=== PATIENT | male | born 1970 | race Caucasian/White ===

== ENCOUNTER 2023-11-23 14:54 | Emergency (ER) | payer OTHER, SELFPAY ==
--- NOTE | ~2023-11-23 | XR_ITS ---
EXAMINATION: XR chest 1V portable INDICATION: Cough and sore throat TECHNIQUE: Portable AP chest at 1557 hours COMPARISON: None available FINDINGS: A subtle airspace opacity is present in the right midlung zone. No pleural effusion or pneu mothorax. The cardiomediastinal silhouette is normal. IMPRESSION: 1. Subtle airspace opacity of the right midlung zone, likely infectious or inflammatory. Consider fol lowup radiographs or chest CT in six weeks if symptoms persist after appropriate therapy or if the pa tient is at high risk for malignancy. Reviewed, dictated and finalized at location F. IMPRESSION: 1. Subtle airspace opacity of the right midlung zone, likely infectious or infl ammatory. Consider followup radiographs or chest CT in six weeks if symptoms pe rsist after appropriate therapy or if the patient is at high risk for malignanc y.
[2023-11-23 14:55] VITALS: BP 165/66; PULSE 84; RESP 18; TEMP 36.4; O2SAT 97
--- NOTE | 2023-11-23 15:25 | ED.URI ---
HPI - URI/Sore Throat General Chief Complaint: Upper Respiratory Infection <Dwaine Diego PA-C - Last Filed: 11/23/23 19:16> Stated Complaint: cough/sore throat <Dwaine Diego PA-C - Last Filed: 11/23/23 19:16> Time Seen by Provider: 11/23/23 15:24 <Dwaine Diego PA-C - Last Filed: 11/23/23 19:16> Focused HPI: This is a 53 yo M who presents to the ED with chief complaint URI symptoms beginning last night. Patient reports sinus congestion, runny nose, postnasal drainage. Reports mild productive cough. Denies chest pain or shortness of breath. States he has history of COPD but has not had his medications since being [facility]. He does not use oxygen. He is almost out of albuterol and has not been taking his long-acting inhaled steroids. Patient reports that he slept with the window open a couple of nights ago and has been feeling under the weather ever since. Denies fevers, chills, abdominal pain, nausea, vomiting. GENERAL: Well-appearing, well-nourished, and in no acute distress. HEAD: Normocephalic, atraumatic. CHEST: Clear to auscultation. ?No respiratory distress. HEART: Regular rate and rhythm.? NEURO: ?Alert and oriented x3. Patient screened in triage and initial orders placed.? ?Additional care and disposition to be based upon?diagnostic testing and treatment. <Dwaine Diego PA-C - Last Filed: 11/23/23 19:16> History of Present Illness HPI Narrative: Pt presents with nasal congestion and cough since last night no fever. Pt has history of COPD but not requiring oxygen. <Bety Bunch III, DO - Last Filed: 11/23/23 18:50> Related Data Allergies/Adverse Reactions: Allergies Allergy/AdvReac Type Severity Reaction Status Date / Time No Known Allergies Allergy Verified 11/23/23 16:26 <TULIO Cuello Last Filed: 11/23/23 19:16> Review of Systems Review of Systems: All systems reviewed & are unremarkable except as noted in HPI and below <Bety Chandler Bunch III, DO - Last Filed: 11/23/23 18:50> Exam Const: General: cooperative, healthy appearing and no acute distress <Bety Chandler Bunch III, DO - Last Filed: 11/23/23 18:50> HENMT: Head: normal to inspection <Bety Chandler Bunch III, DO - Last Filed: 11/23/23 18:50> Face/Nose/Sinus: Nasal discharge present <Bety Chandler Bunch III, DO - Last Filed: 11/23/23 18:50> Mouth: Yes Normal oral and palatal mucosa present <Bety Chandler Bunch III, DO - Last Filed: 11/23/23 18:50> Throat: posterior oropharynx normal <Bety Chandler Bunch III, DO - Last Filed: 11/23/23 18:50> Neck: Neck: normal visual inspection, full ROM and no lymphadenopathy <Bety Chandler Bunch III, DO - Last Filed: 11/23/23 18:50> Chest: Chest palpation & inspection: normal inspection of the chest <Bety Chandler Bunch III, DO - Last Filed: 11/23/23 18:50> Resp: Effort & Inspection: normal respiratory effort <Bety Chandler Bunch III, DO - Last Filed: 11/23/23 18:50> Auscultation: clear to auscultation bilaterally <Bety Chandler Bunch III, DO - Last Filed: 11/23/23 18:50> Cardio: Rate: regular rate <Bety Chandler Bunch III, DO - Last Filed: 11/23/23 18:50> Rhythm: regular rhythm <Bety Chandler Bunch III, DO - Last Filed: 11/23/23 18:50> GI: Inspection: normal to inspection <Bety Chandler Bunch III, DO - Last Filed: 11/23/23 18:50> GI Palp: Yes abdominal tenderness <Bety Chandler Bunch III, DO - Last Filed: 11/23/23 18:50> Auscultation: normal bowel sounds <Bety Chandler Bunch III, DO - Last Filed: 11/23/23 18:50> Skin: General skin exam: normal color and no rashes or lesions noted <Bety Chandler Bunch III, DO - Last Filed: 11/23/23 18:50> Neuro: General: patient oriented x3, moves all extremities, no meningeal signs, no focal motor deficits and CN's II-XI intact bilaterally <Bety Arteaga Bunch III, DO - Last Filed: 11/23/23 18:50> Extrem: General: normal to inspection, full ROM and no clubbing, cyanosis or edema <Bety Chandler Bunch III,
[2023-11-23 16:58] LABS: Influenza A QL RT-PCR Negative (Negative); Influenza B QL RT-PCR Negative (Negative); RSV RNA, RT-PCR Negative (Negative); SARS-CoV-2 RNA PCR Negative (Negative)
== END 2023-11-23 17:20 | disposition home or self-care (01) ==
PROVIDERS: Physician Assistant; Emergency Provider Emergency Medicine
DX: J40 Bronchitis, not specified as acute or chronic (principal); Z20.822 Contact with and (suspected) exposure to COVID-19
CPT/HCPCS: 71045; 87637; 99283

== ENCOUNTER 2024-01-30 14:55 | Emergency (ER) | payer OTHER, SELFPAY ==
[2024-01-30] VITALS (17 sets, daily range): BP systolic 165–207; BP diastolic 87–105; PULSE 78–115; RESP 16–20; TEMP 36.4; O2SAT 94–99
--- NOTE | ~2024-01-30 | XR_ITS ---
EXAMINATION: XR chest 1V portable DATE: 01/30/2024 15:40 INDICATION: Shoulder pain. Hypertension. Headache. TECHNIQUE: A single frontal view of the chest was obtained. COMPARISON: Chest single view 11/23/2023 FINDINGS: There is mild atelectasis in left lower lung zone. No pleural effusion or pneumothorax. The heart size is normal. IMPRESSION: 1. Mild atelectasis in left lower lung zone. Reviewed, dictated and finalized at location E.
--- NOTE | ~2024-01-30 | CT_ITS ---
EXAMINATION: CT brain wo con DATE: 01/30/2024 15:58 INDICATION: Headache. TECHNIQUE: Computed tomography (CT) of the head was performed without intravenous contrast. The mA wa s adjusted according to patient size. Iterative reconstruction technique was employed. The dose-lengt h product was 681.00 mGy-cm. COMPARISON: None FINDINGS: There is no intracranial hemorrhage, acute infarction, or abnormal intracranial mass lesion . The ventricles are normal in size. The orbits are normal. There is mild mucosal thickening in the p aranasal sinuses. The mastoid air cells are normal. IMPRESSION: 1. Normal brain. Reviewed, dictated and finalized at location E. IMPRESSION: 1. Normal brain.
--- NOTE | 2024-01-30 15:19 | ECG_ITS ---
[facility] [address] Test Date: 2024-01-30 Pat Name: Osmar Whitt Department: Room: Gender: M Rn Telemetry: : 1970 Requested By: Ishmael Jackson Order Number: [id number] Yazmin MD: Bryan Broderick M.D. Measurements Intervals [place] Rate: 80 P: 53 NV: 159 QRS: 49 QRSD: 78 T: 62 QT: 359 QTc: 415 Interpretive Statements SINUS RHYTHM POSSIBLE LEFT ATRIAL ENLARGEMENT [-0.1mV P WAVE IN V1/V2] SEPTAL MYOCARDIAL INFARCTION , OF INDETERMINATE AGE [40+ ms Q WAVE IN V1/V2] No previous ECG available for comparison Electronically Signed On 01-31-2024 12:04:32 CDT by Bryan Broderick M.D.
--- NOTE | 2024-01-30 15:23 | ED.RECABL ---
HPI - Recheck/Abnormal Lab/Rx General Chief Complaint: Recheck/Abnormal Lab/Rx Stated Complaint: htn Time Seen by Provider: 01/30/24 15:13 Source: patient Mode of arrival: ambulatory Limitations: no limitations History of Present Illness HPI narrative: Osmar is a 53-year-old male patient presenting to the ER today with complaints of headache, hypertension, left shoulder pain, dizziness that started sometime this morning when he awoke. 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 Rates his pain currently 10 at 10. Related Data Allergies Allergy/AdvReac Type Severity Reaction Status Date / Time No Known Allergies Allergy Verified 11/23/23 16:26 Review of Systems Review of Systems: Pertinent positives per HPI. Patient denies any fever, chills, rash, visual changes, dizziness, cough, runny nose, sore throat, shortness of breath, chest pain, palpitations, nausea, vomiting, diarrhea, constipation, abdominal pain, or any urinary issues. PMFSH Comments At the time of my signature, I reviewed and agree with the nursing past medical, surgical, social, and family history. There is no relevant family history pertinent to the patient complaint. Course Course Emergency Course: Portions of this record may have been created with voice recognition software. Vital Signs Vital signs: Vital Signs Temperature 36.4 C L 01/30/24 15:04 Pulse Rate 85 01/30/24 15:04 Respiratory Rate 16 01/30/24 15:04 Blood Pressure 197/87 H 01/30/24 15:04 Pulse Oximetry 98 01/30/24 15:04 Temperature 36.4 C L 01/30/24 15:04 Pulse Rate 82 01/30/24 16:00 Respiratory Rate 16 01/30/24 15:04 Blood Pressure 192/94 H 01/30/24 15:32 Pulse Oximetry 99 01/30/24 16:00 Vital signs reviewed MDM - Recheck/Abnormal Lab/Rx MDM Narrative Medical decision making narrative: At the time of visit patient is anxious on the stretcher. Patient appears to be nontoxic. EKG: EKG shows sinus rhythm with a possible left atrial enlargement with heart rate of 80 beats per minute. No ST elevation, depression, or T-wave inversion likely old septal myocardial infarction Labs: CBC shows white blood cell count of 10, H and H of 14.3 and 42.8, platelet count is 311, anti coagulation studies within normal limits, chemistry shows sodium 137, potassium at 3.7, chloride 107, carbon dioxide 24, BUN of 11, creatinine 0.7, GFR greater than 60, glucose is 203, liver function tests within normal limits, initial troponin was negative Diagnostics: CT brain negative for any acute intracranial process, chest x-ray shows mild atelectasis in the left lower lobe Medications given: Lopressor 5 mg IV push Plan: Labs are unremarkable and CT of the head is negative for any acute intracranial process. Chest x-rays negative for any pneumonia but does shows some mild atelectasis in left lower lobe. Patient's blood pressure systolic is over 200. Lopressor 5 mg IV push was given in this brought his pressure down to 165/91. Patient has not been taking his blood pressure medicines regularly as he has been working extra shifts. Offer to give anxiety medicine while in the ER and patient declined and states that he just wants to go home. All labs and diagnostic test were reviewed with the patient and he is not wanting to stay here any longer. Will discharge at this time as a feel he is appropriate for outpatient management with his primary care provider. Supportive measures were discussed with the patient and they voiced understanding discharge instructions and agrees to treatment plan. Return precautions reviewed Differential Diagnosis Differential diagnosis: Likely other (Hypertension, headache, chest pain, shortness of breath, non STEMI, CVA, brain mass) Lab Data 01/30/24 15:35 01/30/24 15:35 Labs: Lab Results 01/30/24 01/30/24 Range/Units 15:26 15:35 WBC 10.0 (4.5-10.0) K/mm3 RBC 4.64 (4.6-6.20) M/mm3 Hgb 14.3 (
[2024-01-30 15:38] LABS: Glucose Point of Care 218 mg/dl (65-105)
[2024-01-30 15:41] LABS: Basophils Absolute Auto 0.1 K/mm3 (0.0-0.1); Basophils Percent Auto 0.5 % (0.2-1.2); Eosinophils Absolute Auto 0.9 K/mm3 (0-0.3); Eosinophils Percent Auto 8.5 % (0-4.4); Hematocrit 42.8 % (42.0-52.0); Hemoglobin 14.3 g/dL (14.0-18.0); Immature Granulocyte Absolute 0.03 K/mm3 (0.00-0.031); Immature Granulocyte Percent A 0.3 % (0-0.5); Lymphocytes Percent Auto 30.1 % (18.3-44.2); Mean Corpuscular HGB Conc 33.4 g/dl (32-36); Mean Corpuscular Hemoglobin 30.8 pg (26-34); Mean Corpuscular Volume 92.2 fl (80-100); Mean Platelet Volume 8.9 fl (7.4-10.4); Monocytes Absolute Auto 0.7 K/mm3 (0.1-0.6); Monocytes Percent Auto 6.5 % (2.6-8.5); Neutrophils Absolute Auto 5.4 K/mm3 (1.3-6.7); Neutrophils Percent Auto 54.1 % (45.5-73.1); Platelet Count Result 311 k/mm3 (150-375); Red Blood Count 4.64 M/mm3 (4.6-6.20); Red Cell Distribution Width 13.4 % (11.5-14.5)
[2024-01-30 15:53] LABS: Prothrombin Time 13.1 Seconds (11.1-14.7)
[2024-01-30 15:54] LABS: Partial Thromboplastin Time 25.2 Seconds (22.3-36.8)
[2024-01-30 15:56] LABS: Alanine Aminotransferase 21 U/L (6-50); Albumin Level 3.8 g/dL (3.5-5.1); Alkaline Phosphatase 103 U/L (38-126); Anion Gap 6 mmol/L (4-12); Aspartate Amino Transferase 24 U/L (17-59); Bilirubin,Total 0.3 mg/dL (0.2-1.3); Blood Urea Nitrogen 11 mg/dL (9-20); Calcium 8.5 mg/dL (8.4-10.2); Carbon Dioxide 24 mmol/L (22-30); Chloride 107 mmol/L (98-107); Estimated CRCL calculation 145 ml/min; Estimated Glomerular Filt Rate > 60; Glucose 203 mg/dL (65-110); Potassium 3.7 mmol/L (3.4-5.0); Sodium 137 mmol/L (137-145)
[2024-01-30 16:07] LABS: Troponin I < 0.012 ng/mL (0.000-0.034)
[2024-01-30] MEDS: METOPROLOL TARTRATE INJ 5 MG/5 ML VIAL IV PUSH (16:45)
[2024-01-30 16:58] LABS: Appearance Urine Clear (Clear); Bacteria Urine None Seen /hpf; Bilirubin Urine Negative (Negative); Blood Urine Negative (Negative); Color Urine Yellow (Yellow); Glucose Urine UA 1+ mg/dL (Negative); Ketones Urine Negative (Negative); Leukocyte Esterase Ur Negative LEU/UL (Negative); Nitrate Urine Negative (Negative); Non Pathogenic Casts 0-2; Protein Urine 1+ mg/dL (Negative); RBC Urine 0-2 /hpf (0-2); Specific Grav Ur 1.018 (1.001-1.035); Squamous Epithelial Cell Urine None Seen /hpf (Few); WBC Urine 0-5 /hpf (0-3)
[2024-01-30 17:02] LABS: Add Urine Microscopic? YES
== END 2024-01-30 17:29 | disposition home or self-care (01) ==
PROVIDERS: Emergency Provider Nurse Practitioner Family
DX: G44.1 Vascular headache, not elsewhere classified (principal); I10 Essential (primary) hypertension; Z86.73 Personal history of transient ischemic attack (TIA), and cerebral infarction without residual deficits
CPT/HCPCS: 36415; 70450; 71045; 80053; 81001; 82948; 84484; 85025; 85610; 85730; 93005; 96374; 99284

== ENCOUNTER 2024-08-12 13:03 | Emergency (ER) | payer OTHER, SELFPAY ==
--- OUTSIDE RECORDS SUMMARY | 2024-08-12 13:12 | XMS_ITS | Data Portability ---
Author Organization [place] - [facility] [employer], Main Office Address [address] [place] [address] Assessment No assessment recorded. Plan of Treatment Reminders Order Date Submit Date Provider Last Modified By Organization Details Last Modified Time Details Appointments New Patient 40 2024 01:30P HEATH Howard Not available Not available Not available Follow Up 30 2024 01:00P M MAYA Moon Not available Not available Not available Lab glycohemo globin, total, blood [address] (Lab), [address] [place], [address], 01/01/2024 09:17:43 lipid panel, serum 2023 024 [facility] (Lab), [address] [place], [address], 12/28/2023 21:10:27 CMP, serum or plasma 2023 024 [facility] (Lab), [address] [place], [address], 12/28/2023 21:10:27 TSH, serum or plasma 2023 024 [facility] (Lab), [address] [place], [address], 12/28/2023 21:10:27 CK (creatine kinase), total, serum [address] (Lab), [address] [place], [address], 01/01/2024 09:18:29 PSA, serum or plasma 2023 [facility] (Lab), [address] [place], [address], 12/28/2023 21:10:27 glycohemo globin, total, blood [email or web address] (Lab), [address] [place], [address], 08/10/2024 11:05:58 Referral psychiatr ist referral - PTSD . night terrors. Please call patient to schedule an appointme nt. Thank you 2023 [email or web address] Hailee Ha Pmhnp, [address] [facility] [address], [address], 08/09/2024 17:20:24 Procedures None recorded. Surgeries None recorded. Imaging None recorded. Medication Orders clopidogr el 75 mg tablet 2023 [facility] [employer] [facility] #97545, [address], [id number], 12/25/2023 11:16:46 aspirin 81 mg tablet,de layed release 2023 024 [facility] [employer] [facility] #91088, [address], [id number], 12/25/2023 11:17:34 prazosin 1 mg capsule 2023 024 [facility] [employer] [facility] #24411, [address], [id number], 12/25/2023 10:59:47 hydroxyzi ne HCl 10 mg tablet 2023 024 [facility] [employer] [facility] #36372, [address], [id number], 12/25/2023 11:05:21 albuterol sulfate HFA 90 mcg/actua tion aerosol inhaler 2023 024 [facility] #61747, [address], [place], [place], [id number], 12/25/2023 11:06:33 Symbicort 160 mcg-4.5 mcg/actua tion HFA aerosol inhaler 2023 [email or web address] [place] [address] Drug Store #30136, [address], [place], [place], [id number], 01/02/2024 20:54:30 Spiriva with [employer] r 18 mcg and inhalatio n capsules 2023 024 [facility] #36186, [address] [facility], [place], [place], [id number], 12/25/2023 11:07:51 losartan 100 mg tablet 2023 024 [facility] #86795, [address] [facility], [place], [place], [id number], 12/25/2023 10:54:51 bupropion HCl XL 150 mg 24 hr tablet, extended release 2023 0[email or web address]311[facility], [address], [place], [place], [id number], 08/02/2024 15:18:10 bupropion HCl XL 300 mg 24 hr tablet, extended release 2023 024 [facility] #23800, [address] [place] [address], [id number], 12/25/2023 11:02:16 prazosin 2 mg capsule 2023 024 [facility] #41505, [address] [place] [address], [id number], 08/02/2024 15:32:49 alcohol swabs 2023 [facility] #29808, [address] [place] [address], [id number], 08/02/2024 15:47:09 sildenafi l 100 mg tablet 2023 [facility] #23561, [address] [facility] [address] [place] [address], [id number], 08/02/2024 15:55:15 triamcino lone acetonide 0.1 % topical ointment 2023 [facility] [employer] [facility] #02222, [address] [facility] [address] [place] [address], [id number], 08/02/2024 15:38:58 hydroxyzi ne HCl 10 mg tablet 2023 [facility] #33908, [address] [facility] [address] [place] [address], [id number], 08/02/2024 15:41:52 bupropion HCl XL 300 mg 24 hr tablet, extended release 2023 [facility] [employer] [facility] #40493, [address], [id number], 08/02/2024 15:36:36 Patient TargetsNo targets recorded. Patient Instructions Encounter Date Encounter Id Patient Instructions Last Modified By Organization Details Last Modified Time 12/25/2023 [id number] return here free BP chec in 7 days,reviewed salty foods to avoid. no si/hi for years [email or web address] Not available 01/02/2024 21:17:45 Reason for Referral Psychiatrist Referral for Sl eep terror disorder PTSD . night terrors. Please call patient to schedule an appointment. Thank you Referring Physician: Hipolito Walker, Family Medicine, Encounter Date: 08/02/2024 Results Created Date Observation Date Name Description Value Unit Range Abnormal Flag Note LastModifiedBy Organization Detail LastModifiedTime Result Notes None recorded. Problems Name Problem SNOMED Code Status Onset Date Resolution Date Notes Provider Name and Address Organization Details Recorded Time Essential hypertensi on 76359501 Active 2023 MAYA Moon [address], [place], [address], [employer] 4 10:53:41 Sleep terror disorder 25247393 Active 2023 MAYA Moon [address], [place], [address], [employer] 4 10:55:29 Depressive disorder 35656073 Active 2023 MAYA Moon [address], [address], [place], [address], [employer] 4 10:58:48 Anxiety 38755352 Active 2023 MAYA Moon [address], [place], [address], [employer] 4 11:02:23 Chronic obstructiv e pulmonary disease 16197679 Active 2023 MAYA Moon [address], [place], [address], [employer] 4 11:03:35 Type 2 diabetes mellitus 98205483 Active 2023 MAYA Moon [address], [place], [address], [employer] 4 11:08:47 Hyperlipid emia 54322631 Active 2023 MAYA Moon [address], [place], [address], [employer] 4 11:09:30 Screening for malignant neoplasm of prostate Active 2023 MAYA Moon [address], [place], [address], [employer] 4 11:10:28 Cerebrovas cular accident 242031795 Active 2023, affecting left side . MAYA Moon [address], [address], [place], [address], [employer] 4 15:35:48 Posttrauma tic stress disorder 87812122 Active 2023 MAYA Moon [address], [place], [address], [employer] 15:28:34 Eczema 33746358 Active 2023 MAYA Moon [address], [place], [address], [employer] 4 15:37:45 Erectile dysfunctio n 329744273 Active 2023 MAYA Moon [address], [place], [address], [employer] 15:53:53 Notes:cva affecting left coby e [facility] 2022 Problem Notes None recorded. Medical Equipment None Reported. Allergies Allergen ID Allergen Name Allergen Category Reaction Reaction Severity Criticality Documentation Date Start Date Code Code System Note Provider Name and Address Organization Details Recorded Time 15748 Aleve medicatio n swelling Not available Not available 08/02/2024 15363 1 RxNorm Darlene Duvall RN null, [email or web address] [facility] [employer] 15:23:50 Medications Name Sig Start Date Stop Date Status Note LastModified by Organization Details LastModified Time azithromy adilson 250 mg tablet TAKE 2 TABLETS BY MOUTH ON DAY 1, AND THEN TAKE 1 TABLET BY MOUTH ONCE A DAY ON DAY 2 THROUGH DAY 5 12/24 completed Not Available Not Available Not Available prazosin 1 mg capsule Take 1 capsule every day by oral route at bedtime for 30 days, for for night terrors. 2023 active Not Available Not Available Not Avai lable clopidogr el 75 mg tablet TAKE 1 TABLET BY MOUTH EVERY DAY IN THE MORNING FOR CIRCULAT ION active Not Available Not Available No t Available aspirin 81 mg tablet,de layed release TAKE 1 TABLET BY MOUTH EVERY DAY IN THE MORNING FOR CIRCULAT ION active Not Available Not Available No t Available sildenafi l 100 mg tablet TAKE 1 TABLET BY MOUTH EVERY DAY FOR 10 DAYS NEEDED active Not Available Not Available No t Available triamcino lone acetonide 0.1 % topical ointment APPLY A THIN LAYER TO THE AFFECTED AREA(S) hands , grin BY TOPICAL ROUTE 2 TIMES PER DAY 2023 active Not Available Not Available Not Avai lable alcohol swabs Apply 1 pad every day by topical route for 30 days. 2023 active Not Available Not Available Not Avai lable albuterol sulfate HFA 90 mcg/actua tion aerosol inhaler INHALE 2 PUFFS BY MOUTH EVERY 8 HOURS NEEDED active Not Available Not Available No t Available hydroxyzi ne HCl 10 mg tablet take 1 or 2 tabs po up to 3 times daily 2023 active Not Available Not Available Not Avai lable losartan 100 mg tablet TAKE 1 TABLET BY MOUTH EVERY DAY IN THE MORNING FOR BLOOD PRESSURE active Not Available Not Available No t Available metformin ER 500 mg tablet,ex tended release 24 hr 1 tab po at dinner for 7 days. 2 tabs at dinner for 7 days . 3 tabs at dinner for 7 days . 4 tabs at dinner and maintain active Not Available Not Available No t Available prazosin 2 mg capsule TAKE 1 CAPSULE BY MOUTH EVERY DAY AT BEDTIME 2023 active Not Available Not Available Not Avai lable bupropion HCl XL 300 mg 24 hr tablet, extended release Take 1 tablet every day by oral route in the morning for 30 days. 2023 active Not Available Not Available Not Avai lable bupropion HCl XL 150 mg 24 hr tablet, extended release TAKE 1 TABLET BY MOUTH EVERY DAY IN THE MORNING FOR 7 DAYS 08/02 completed dose adjustme nt Not Available Not Available Not Available tiotropiu m bromide 18 mcg capsule with inhalatio n device INHALE THE CONTENTS OF 1 CAPSULE VIA INHALATI ON DEVICE EVERY DAY active Not Available Not Available No t Available Symbicort 160 mcg-4.5 mcg/actua tion HFA aerosol inhaler INHALE 2 PUFFS BY MOUTH TWICE DAILY active Not Available Not Available No t Available Vitals Date Recorded Body height Body mass index (BMI) Body weight Body temperature Respiratory rate Heart rate Oxygen saturation Oxygen saturation in Arterial blood by Pulse oximetry Systolic blood pressure Diastolic blood pressure Provider Name and Address Organization Details Last Updated DateTime 4 187.96 cm 34.4 kg/m2 543662. 76 g 98.4 [degF] 16 /min 82 /min 98 % 98 % 180 mm[Hg] 118 mm[Hg] Darlene Duvall RN [facility] [employer] [facility] 4 10:37:46 Date Recorded Body height Body mass index (BMI) Body weight Body temperature Heart rate Oxygen saturation Oxygen saturation in Arterial blood by Pulse oximetry Systolic blood pressure Diastolic blood pressure Provider Name and Address Organization Details Last Updated DateTime 4 187.96 cm 30.6 kg/m2 004512. 98 g 97.7 [degF] 90 /min 99 % 99 % 200 mm[Hg] 112 mm[Hg] Darlene Duvall RN [facility] [employer] [facility] 4 15:26:01 Social History Question Answer Notes LastModified by Organizat ion Details LastModified Time Tobacco Smoking Status Current Every Day Smoker Darlene Duvall RN [facility] [employer] [facility] 12/25/2023 10:34:11 Do You Have An Advance Directive? No Information not available 12/25/2023 What Is Your Level Of Alcohol Consumption? None Information not available 12/25/2023 Is Blood Transfusion Acceptable In An Emergency? Yes Information not available 12/25/2023 What Is Your Level Of Caffeine Consumption? Occasional Information not available 12/25/2023 What Is Your Code Status? Full Code Information not available 12/25/2023 In The 14 Days Before Symptom Onset, Have You Had Close Contact With A Laboratory-confi rmed COVID-19 While That Case Was Ill? No Information not available 12/25/2023 In The 14 Days Before Symptom Onset, Have You Had Close Contact With A Person Who Is Under Investigation For COVID-19 While That Person Was Ill? No Information not available 12/25/2023 Are You Currently Employed? Yes Information not available 12/25/2023 What Type Of Diet Are You Following? REGULAR Information not available 12/25/2023 What Is The Highest Grade Or Level Of School You Have Completed Or The Highest Degree You Have Received? [id number] Information not available 12/25/2023 Have There Been Any Changes To Your Family Or Social Situation? Yes Information not available 12/25/2023 Are There Any Guns Present In Your Home? No Information not available 12/25/2023 Where Do You Live? SingleLevelHouse Information not available 12/25/2023 Do You Have A Medical Power Of Global Director Air And Climate Change? No Information not available 12/25/2023 How Many Children Do You Have? 0 Information not available 12/25/2023 What Is Your Relationship Status? Single Information not available 12/25/2023 Do You Use Your Seat Belt Or Car Seat Routinely? Yes Information not available 12/25/2023 Do You Have Smoke And Carbon Monoxide Detectors In Your Home? Yes Information not available 12/25/2023 Are You Passively Exposed To Smoke? Yes Information not available 12/25/2023 Are There Any Smokers In Your House? Yes Information not available 12/25/2023 How Much Tobacco Do You Smoke? 1 PPD Information not available 12/25/2023 Do You Feel Stressed (tense, Restless, Nervous, Or Anxious, Or Unable To Sleep At Night)? [id number] Information not available 12/25/2023 Do You Use Any Illicit Or Recreational Drugs? No Information not available 12/25/2023 Have You Recently Traveled Abroad? No Information not available 12/25/2023 Are You Currently In School? No Information not available 12/25/2023 Do You Have Any Dietary Restrictions? No Information not available 12/25/2023 Sex: Unknown Functional Status Question Answer Note LastModified by Organizat ion Details LastModified Time What is your exercise level? Occasional Information not available 12/25/2023 Mental Status None recorded. Family History Nothing Reported. Medical History No medical history recorded. Past Encounters Encounter ID Performer Location Encounter Start Date Encounter Closed Date Diagnosis/Indication Diagnosis SNOMED-CT Code Diagnosis ICD10 Code [id number] MAYA Moon [facility] [address] [facility] [place] [address] 12/25/2023 10:16:08 12/25/2023 11:51:04 Essential hypertension 59088570 I10 Sleep terror disorder 89 749784 F51.4 Depressive disorder 3548 9007 F32.A Anxiety 02803008 F41.9 Chronic ob structive pulmonary disease 40969452 J44.9 Type 2 susy betes mellitus 49927316 E11.9 Hyperlipidemia 36555531 E78.5 Screening for malignant neoplasm of prostate 586338209 Z12.5 Cerebrovas cular accident 316568898 I63.9 [id number] MAYA Moon [facility] [address] [place] [address] 08/02/2024 15:02:12 08/02/2024 15:59:40 Sleep terror disorder 00812642 F51.4 Depressive disorder 3548 9007 F32.A Anxiety 42288245 F41.9 Eczema 72970709 L30.9 Type 2 susy betes mellitus 42945670 E11.9 Essential hypertension 57825145 I10 Erectile dysfunction 860 440350 F52.21 Cerebrovas cular accident 052355714 I63.9 Health Concerns Section Related Observation LastModified by Organization Detai ls LastModified Time None Recorded Concern Status LastModified by Organization Details LastModified Time None Recorded Advance Directives Directive N: Payers Encounter Date Sequence Insurance Name Policy Number Policy Agee Covered Member ID Agee Member ID Guarantor Name 12/25/2023 1 [facility] ON OR AFTER 02/28/21 (MEDICAID REPLACEMENT - HMO) Osmar Whitt [id number] Osmar Whitt 08/02/2024 1 [facility] ON OR AFTER 02/28/21 (MEDICAID REPLACEMENT - HMO) Osmar Whitt [id number] Osmar Wihtt Notes Date Note Type Note Provider Name and Address Organization Details Recorded Time 12/25/2023 text/html 10 years in [employer] 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 copd depressed ptsd. Juy 2021 tried to hang himelf MAYA Moon [address], [place], [address], [facility] [employer] [facility] [employer] [facility] 01/02/2024 21:17:57 08/02/2024 text/html still limping , could use a cane . his fall did not injure anything MAYA Moon [address], [place], [address], [employer] 08/04/2024 10:30:59
--- OUTSIDE RECORDS SUMMARY | 2024-08-12 13:12 | XMS_ITS | Continuity of Care Document ---
Author Organization [place] - [facility], S_[facility] Address [address] [place] [address] Assessment No assessment recorded. Plan of Treatment Reminders Order Date Submit Date Provider Last Modified By Organization Details Last Modified Time Details Appointments New Patient 40 2024 01:30P M Hailee Ha PMHNP Not available Not available Not available Follow Up 30 2024 01:00P M MAYA Moon Not available Not available Not available Lab glycohemo globin, total, blood [email or web address] ([address]), [address] [place], [address], 08/10/2024 11:05:58 Referral psychiatr ist referral - PTSD . night terrors. Please call patient to schedule an appointme nt. Thank you 2023 024 [email or web address] Hailee Ha Pmhnp, [address] [facility] [address] , [place], [address], 08/09/2024 17:20:24 Procedures None recorded. Surgeries None recorded. Imaging None recorded. Medication Orders prazosin 2 mg capsule 2023 [employer] #28863, [address], [id number], 08/02/2024 15:32:49 alcohol swabs 2023 024 [facility] #93455, [address], [id number], 08/02/2024 15:47:09 sildenafi l 100 mg tablet 2023 [facility] #16879, [address], [id number], 08/02/2024 15:55:15 triamcino lone acetonide 0.1 % topical ointment 2023 [facility] #95916, [address], [id number], 08/02/2024 15:38:58 hydroxyzi ne HCl 10 mg tablet 2023 [facility] #92116, [address], [id number], 08/02/2024 15:41:52 bupropion HCl XL 300 mg 24 hr tablet, extended release 2023 [facility] #93727, [address], [id number], 08/02/2024 15:36:36 Patient TargetsNo targets recorded. Patient InstructionsNo instructions recorded. Reason for Referral Psychiatrist Referral for Sl eep terror disorder PTSD . night terrors. Please call patient to schedule an appointment. Thank you Referring Physician: Hipolito Walker, Family Medicine, Encounter Date: 08/02/2024 Problems Name Problem SNOMED Code Status Onset Date Resolution Date Notes Provider Name and Address Organization Details Recorded Time Essential hypertensi on 85562469 Active 2023 MAYA Moon [address], [place], [address], [employer] 10:53:41 Sleep terror disorder 73195279 Active 2023 MAYA Moon [address], [place], [address], [employer] 4 10:55:29 Depressive disorder 56302374 Active 2023 MAYA Moon [address], [place], [address], [employer] [place] [facility] 4 10:58:48 Anxiety 79393300 Active 2023 MAYA Moon [address], [place], [address], [employer] [place] [facility] [employer] [facility] 4 11:02:23 Chronic obstructiv e pulmonary disease 53347977 Active 2023 MAYA Moon [address], [place], [address], [employer] 4 11:03:35 Type 2 diabetes mellitus 54275958 Active 2023 MAYA Moon [address], [place], [address], [employer] [facility] [employer] [facility] 11:08:47 Hyperlipid emia 04605529 Active 2023 MAYA Moon [address], [place], [address], [employer] [facility] [employer] [facility] 4 11:09:30 Screening for malignant neoplasm of prostate Active 2023 MAYA Moon [address], [place], [address], [employer] [facility] [employer] [facility] 4 11:10:28 Cerebrovas cular accident 270784314 Active 2023, affecting left side . MAYA Moon [address], [place], [address], [employer] [facility] [employer] [facility] 4 15:35:48 Posttrauma tic stress disorder 38202526 Active 2023 MAYA Moon [address], [place], [address], [employer] [facility] [place] [employer] [facility] 12/03/202 4 15:28:34 Eczema 50311624 Active [address]23 MAYA Moon [address], [place], [address], [facility] [employer] [facility] 4 15:37:45 Erectile dysfunctio n 241866090 Active [address]23 MAYA Moon [address], [place], [address], [facility] [employer] [facility] [employer] [facility] 4 15:53:53 Notes:cva affecting left coby e [facility] . thanks2022 Problem Notes None recorded. Medical Equipment None Reported. Allergies Allergen ID Allergen Name Allergen Category Reaction Reaction Severity Criticality Documentation Date Start Date Code Code System Note Provider Name and Address Organization Details Recorded Time 01461 Aleve medicatio n swelling Not available Not available 08/02/2024 47224 1 RxNorm Darlene Duvall RN [facility], [facility] [employer] [facility] 15:23:50 Medications Name Sig Start Date Stop [...] Updated DateTime 4 187.96 cm 30.6 kg/m2 317855. 98 g 97.7 [degF] 90 /min 99 % 99 % 200 mm[Hg] 112 mm[Hg] Darlene Duvall RN [place] [facility] [employer] 4 15:26:01 Social History Question Answer Notes LastModified by Organizat ion Details LastModified Time Tobacco Smoking Status Current Every Day Smoker Darlene Duvall RN null, [place] [facility] 12/25/2023 10:34:11 Do You Have An Advance [...] Or The Highest Degree You Have Received? [id number] Information not available 12/25/2023 Have There Been Any Changes To Your Family Or Social Situation? Yes Information not available 12/25/2023 Are There Any Guns Present In Your Home? No Information not available 12/25/2023 Where Do You Live? SingleLevelHouse Information not available 12/25/2023 Do You Have A Medical Power Of Inside Sales Agent? No Information not available 12/25/2023 How Many [...] Anxious, Or Unable To Sleep At Night)? [id number] Information not available 12/25/2023 Do You Use [...] Diagnosis/Indication Diagnosis SNOMED-CT Code Diagnosis ICD10 Code [id number] MAYA Moon [facility] [address] [place] [address] 08/02/2024 15:02:12 08/02/2024 15:59:40 Sleep terror disorder 98277003 F51.4 Depressive disorder 3548 9007 F32.A Anxiety 95868078 F41.9 Eczema 91117710 L30.9 Type 2 susy betes mellitus 00213383 E11.9 Essential hypertension 85918963 I10 Erectile dysfunction 860 069457 F52.21 Cerebrovas cular accident 570301260 I63.9 Health Concerns Section Related Observation LastModified by Organization Detai ls LastModified Time None Recorded Concern Status LastModified by Organization Details LastModified Time None Recorded Payers Encounter Date Sequence Insurance Name Policy Number Policy Agee Covered Member ID Agee Member ID Guarantor Name 08/02/2024 1 [facility] ON [facility] AFTER 02/28/21 (MEDICAID REPLACEMENT - HMO) Osmar Whitt [id number] Osmar Whitt Notes Date Note Type Note Provider Name and Address Organization Details Recorded Time 08/02/2024 text/html still limping , could use a cane . his fall did not injure anything MAYA Moon [address] [facility], [facility] [address], [place], [address], [facility] 08/04/2024 10:30:59
--- NOTE | 2024-08-12 14:52 | PC.NURSE ---
Pt to the intake desk and states that he got an appt with his dr. Pt ambulated to the exit with no difficulty.
--- OUTSIDE RECORDS SUMMARY | 2024-08-16 00:41 | XMS_ITS | Continuity of Care Document ---
Author Organization [place] - [facility], [facility] Address [address] [place] [address] Assessment No assessment recorded. Plan of Treatment Reminders Order Date Submit Date Provider Last Modified By Organization Details Last Modified Time Details Appointments New Patient 40 2024 01:30P M Hailee Ha PMHNP Not available Not available Not available Follow Up 30 2024 01:00P M MAYA Moon Not available Not available Not available Lab glycohemo globin, total, blood [email or web address] (Lab), [address] [place], [address], 08/10/2024 11:05:58 Referral psychiatr ist referral - PTSD . night terrors. Please call patient to schedule an appointme nt. Thank you 2023 024 [email or web address] Hailee Ha Pmhnp, [address] [facility] [address] , [place], [address], 08/09/2024 17:20:24 Procedures None recorded. Surgeries None recorded. Imaging None recorded. Medication Orders prazosin 2 mg capsule 2023 [facility] #06578, [address], [id number], 08/02/2024 15:32:49 alcohol swabs 2023 024 [facility]13366, [address], [id number], 08/02/2024 15:47:09 sildenafi l 100 mg tablet 2023 [facility] #06949, [address], [id number], 08/02/2024 15:55:15 triamcino lone acetonide 0.1 % topical ointment 2023 [facility] #83373, [address], [id number], 08/02/2024 15:38:58 hydroxyzi ne HCl 10 mg tablet 2023 [facility] #65682, [address], [id number], 08/02/2024 15:41:52 bupropion HCl XL 300 mg 24 hr tablet, extended release 2023 [facility] #32371, [address], [id number], 08/02/2024 15:36:36 Patient TargetsNo targets recorded. Patient [...] Organization Details Recorded Time Essential hypertensi on 32982208 Active 2023 MAYA Moon [address], [place], [address], [employer] 10:53:41 Sleep terror disorder 68240130 Active 2023 MAYA Moon [address], [address], [place], [address], [employer] 4 10:55:29 Depressive disorder 26427718 Active 2023 MAYA Moon [address], [address], [place], [address], [employer] [place] [facility] 4 10:58:48 Anxiety 27215019 Active 2023 MAYA Moon [address], [address], [place], [address], [employer] [place] [facility] 4 11:02:23 Chronic obstructiv e pulmonary disease 92181521 Active 2023 MAYA Moon [address], [address], [place], [address], [employer] [facility] [place] [facility] [employer] 4 11:03:35 Type 2 diabetes mellitus 38000208 Active 2023 MAYA Moon [address], [address], [place], [address], [employer] [facility] 11:08:47 Hyperlipid emia 31602184 Active 2023 MAYA Moon [address], [address], [place], [address], [employer] [facility] 4 11:09:30 Screening for malignant neoplasm of prostate Active 2023 MAYA Moon [address], [place], [address], [employer] [facility] [employer] [facility] 4 11:10:28 Cerebrovas cular accident 870025246 Active 2023, affecting left side . MAYA Moon [address], [address], [place], [address], [employer] [facility] [employer] [facility] 4 15:35:48 Posttrauma tic stress disorder 91100232 Active 2023 MAYA Moon [address], [place], [address], [employer] [facility] 12/03/202 4 15:28:34 Eczema 75516329 Active [address]23 MAYA Moon [address], [place], [address], [facility] [employer] [facility] 4 15:37:45 Erectile dysfunctio n 528592982 Active [address] MAYA Moon [address], [place], [address], [facility] [employer] [facility] [employer] [facility] 4 15:53:53 Notes:cva affecting left coby e [facility] . thanks2022 Problem Notes None recorded. Medical Equipment None Reported. Allergies Allergen ID Allergen Name Allergen Category Reaction Reaction Severity Criticality Documentation Date Start Date Code Code System Note Provider Name and Address Organization Details Recorded Time 71080 Aleve medicatio n swelling Not available Not available 08/02/2024 93083 1 RxNorm Darlene Duvall RN [facility] [employer] [facility] 4 15:23:50 Medications Name Sig Start Date Stop [...] for 30 days, for for night terrors. active Not Available Not Available No t Available clopidogr el 75 mg tablet TAKE 1 [...] Not Available Not Available No t Available OneTouch Ultra Test strips USE TO MONITOR BLOOD SUGAR LEVELS DAILY active Not Available Not Available No t Available triamcino lone acetonide 0.1 % topical ointment APPLY A THIN LAYER TO THE AFFECTED AREA(S) hands , grin BY TOPICAL ROUTE 2 TIMES PER DAY active Not Available Not Available No t Available alcohol swabs Apply 1 pad every day by topical route for 30 days. 2023 active Not Available Not Available Not Avai lable albuterol sulfate HFA 90 mcg/actua tion aerosol inhaler INHALE 2 PUFFS BY MOUTH EVERY 8 HOURS NEEDED active Not Available Not Available No t Available hydroxyzi ne HCl 10 mg tablet TAKE 1 TO 2 TABLETS BY MOUTH UP TO THREE TIMES DAILY active Not Available Not Available No t Available losartan 100 mg tablet TAKE 1 TABLET [...] CAPSULE BY MOUTH EVERY DAY AT BEDTIME active Not Available Not Available No t Available bupropion HCl XL 300 mg 24 hr tablet, extended release TAKE 1 TABLET BY MOUTH EVERY DAY IN THE MORNING active Not Available Not Available No t Available bupropion HCl XL 150 mg 24 hr [...] Not Available Not Available No t Available OneTouch Delica Plus Lancet 30 gauge DIRECTED DAILY active Not Available Not Available No t Available Vitals Date Recorded Body height Body mass index (BMI) Body weight Body temperature Heart rate Oxygen saturation Oxygen saturation in Arterial blood by Pulse oximetry Systolic blood pressure Diastolic blood pressure Provider Name and Address Organization Details Last Updated DateTime 4 187.96 cm 30.6 kg/m2 219631. 98 g 97.7 [degF] 90 /min 99 % 99 % 200 mm[Hg] 112 mm[Hg] Darlene Duvall RN [place] [facility] [employer] 4 15:26:01 Social History Question Answer Notes LastModified by Organizat ion Details LastModified Time Tobacco Smoking Status Current Every Day Smoker ABHIJIT Owen, [place] [facility] 12/25/2023 10:34:11 Do You [...] Or The Highest Degree You Have Received? [id number] Information not available 12/25/2023 Have There Been Any Changes To Your Family Or Social Situation? Yes Information not available 12/25/2023 Are There Any Guns Present In Your Home? No Information not available 12/25/2023 Where Do You Live? SingleLevelHouse Information not available 12/25/2023 Do You Have A Medical Power Of Siding Mechanic? No Information not available 12/25/2023 How Many [...] Anxious, Or Unable To Sleep At Night)? [id number] Information not available 12/25/2023 Do You Use [...] Diagnosis/Indication Diagnosis SNOMED-CT Code Diagnosis ICD10 Code [id number] MAYA Moon [facility] [address] [address] 08/02/2024 15:02:12 08/02/2024 15:59:40 Sleep terror disorder 36109727 F51.4 Depressive disorder 3548 9007 F32.A Anxiety 68233837 F41.9 Eczema 08001586 L30.9 Type 2 susy betes mellitus 77379027 E11.9 Essential hypertension 57916166 I10 Erectile dysfunction 860 659417 F52.21 Cerebrovas cular accident 066410505 I63.9 Health Concerns Section Related Observation LastModified by Organization Detai ls LastModified Time None Recorded Concern Status LastModified by Organization Details LastModified Time None Recorded Payers Encounter Date Sequence Insurance Name Policy Number Policy Agee Covered Member ID Agee Member ID Guarantor Name 08/02/2024 1 [facility] ON OR AFTER 02/28/21 (MEDICAID REPLACEMENT - HMO) Osmar Whitt [id number] Osmar Whitt Notes Date Note Type Note Provider Name and Address Organization Details Recorded Time 08/02/2024 text/html still limping , could use a cane . his fall did not injure anything MAYA Moon [address] [facility], [facility] [address], [place], [address], [facility] [employer] 08/04/2024 10:30:59
--- OUTSIDE RECORDS SUMMARY | 2024-08-16 00:41 | XMS_ITS | Data Portability ---
Author Organization [place] - [facility], Main Office Address [address] [place] [address] Assessment No assessment recorded. Plan of Treatment Reminders Order Date Submit Date Provider Last Modified By Organization Details Last Modified Time Details Appointments New Patient 40 2024 01:30P HEATH Howard Not available Not available Not available Follow Up 30 2024 01:00P M MAYA Moon Not available Not available Not available Lab glycohemo globin, total, blood [address] (Lab), [address] [place], [address], 01/01/2024 09:17:43 lipid panel, serum 2023 024 [facility] (Lab), [address] [place], [address], 12/28/2023 21:10:27 CMP, serum or plasma 2023 024 [facility] (Lab), [address] [place], [address], 12/28/2023 21:10:27 TSH, serum or plasma 2023 024 [facility] (Lab), [address] [place], [address], 12/28/2023 21:10:27 CK (creatine kinase), total, serum [address] (Lab), [address] [place], [address], 01/01/2024 09:18:29 PSA, serum or plasma 2023 [facility] (Lab), [address] [place], [address], 12/28/2023 21:10:27 glycohemo globin, total, blood [email or web address] (Lab), [address] [place], [address], 08/10/2024 11:05:58 Referral psychiatr ist referral - PTSD . night terrors. Please call patient to schedule an appointme nt. Thank you 2023 [email or web address] Hailee Ha Pmhnp, [address] [facility] [address], [address], 08/09/2024 17:20:24 Procedures None recorded. Surgeries None recorded. Imaging None recorded. Medication Orders clopidogr el 75 mg tablet 2023 [facility] #36818, [address], [id number], 12/25/2023 11:16:46 aspirin 81 mg tablet,de layed release 2023 024 [facility] #23148, [address], [id number], 12/25/2023 11:17:34 prazosin 1 mg capsule 2023 024 [facility] #55883, [address], [id number], 12/25/2023 10:59:47 hydroxyzi ne HCl 10 mg tablet 2023 024 [facility] #40066, [address], [id number], 12/25/2023 11:05:21 albuterol sulfate HFA 90 mcg/actua tion aerosol inhaler 2023 024 [facility] #05749, [address], [place], [place], [id number], 12/25/2023 11:06:33 Symbicort 160 mcg-4.5 mcg/actua tion HFA aerosol inhaler [address]23 [email or web address] [place] [address] Drug [facility] #52337, [address], [place], [place], [id number], 01/02/2024 20:54:30 Spiriva with [employer] r 18 mcg and inhalatio n capsules 2023 024 [facility] #76238, [address] [facility], [place], [place], [id number], 12/25/2023 11:07:51 losartan 100 mg tablet 2023 024 [facility] #40375, [address] [facility], [place], [place], [id number], 12/25/2023 10:54:51 bupropion HCl XL 150 mg 24 hr tablet, extended release 2023 024 [email or web address] #[facility]9583, [address], [place], [place], [id number], 08/02/2024 15:18:10 bupropion HCl XL 300 mg 24 hr tablet, extended release 2023 024 [facility] #48467, [address] [place] [address], [id number], 12/25/2023 11:02:16 prazosin 2 mg capsule 2023 024 [facility] #80203, [address] [place] [address], [id number], 08/02/2024 15:32:49 alcohol swabs 2023 [facility] #04003, [address] [place] [address], [id number], 08/02/2024 15:47:09 sildenafi l 100 mg tablet 2023 [facility] #03187, [address] [facility] [address] [place] [address], [id number], 08/02/2024 15:55:15 triamcino lone acetonide 0.1 % topical ointment 2023 [facility] #63153, [address] [facility] [address] [place] [address], [id number], 08/02/2024 15:38:58 hydroxyzi ne HCl 10 mg tablet 2023 [facility] #96298, [address] [facility] [address] [place] [address], [id number], 08/02/2024 15:41:52 bupropion HCl XL 300 mg 24 hr tablet, extended release 2023 [facility] #44108, [address], [id number], 08/02/2024 15:36:36 Patient TargetsNo targets recorded. Patient Instructions Encounter Date Encounter Id Patient Instructions Last Modified By Organization Details Last Modified Time 12/25/2023 [id number] return here free BP chec in 7 days,reviewed salty foods to avoid. no si/hi for years [email or web address] Not available 01/02/2024 21:17:45 Reason for Referral [...] Organization Details Recorded Time Essential hypertensi on 81687271 Active 2023 MAYA Moon [address], [place], [address], [employer] 4 10:53:41 Sleep terror disorder 81685597 Active 2023 MAYA Moon [address], [place], [address], [employer] 4 10:55:29 Depressive disorder 74080160 Active 2023 MAYA Moon [address], [place], [address], [employer] 4 10:58:48 Anxiety 02756496 Active 2023 MAYA Moon [address], [address], [place], [address], [employer] 4 11:02:23 Chronic obstructiv e pulmonary disease 90433091 Active 2023 MAYA Moon [address], [address], [place], [address], [employer] 4 11:03:35 Type 2 diabetes mellitus 15795964 Active 2023 MAYA Moon [address], [place], [address], [employer] 4 11:08:47 Hyperlipid emia 90337596 Active 2023 MAYA Moon [address], [place], [address], [employer] 4 11:09:30 Screening for malignant neoplasm of prostate Active 2023 MAYA Moon [address], [place], [address], [facility] 4 11:10:28 Cerebrovas cular accident 607590916 Active 2023, affecting left side . MAYA Moon [address], [place], [address], [facility] 4 15:35:48 Posttrauma tic stress disorder 78352362 Active 2023 MAYA Moon [address], [place], [address], [facility] 4 15:28:34 Eczema 34545594 Active 2023 MAYA Moon [address], [place], [address], [facility] 4 15:37:45 Erectile dysfunctio n 813069847 Active 2023 MAYA Moon [address], [place], [address], [facility] 4 15:53:53 Notes:cva affecting left coby e [facility] . [facility] 2022 Problem Notes None recorded. Medical Equipment None Reported. Allergies Allergen ID Allergen Name Allergen Category Reaction Reaction Severity Criticality Documentation Date Start Date Code Code System Note Provider Name and Address Organization Details Recorded Time 62743 Aleve medicatio n swelling Not available Not available 08/02/2024 27457 1 RxNorm Darlene Duvall RN null, [employer] [facility] 15:23:50 Medications Name Sig Start Date Stop [...] Not Available Not Available No t Available [facility] Ultra Test strips USE TO MONITOR BLOOD [...] Updated DateTime 4 187.96 cm 34.4 kg/m2 518930. 76 g 98.4 [degF] 16 /min 82 /min 98 % 98 % 180 mm[Hg] 118 mm[Hg] Darlene Duvall RN [facility] [employer] [facility] 10:37:46 Date Recorded Body height Body mass index (BMI) Body weight Body temperature Heart rate Oxygen saturation Oxygen saturation in Arterial blood by Pulse oximetry Systolic blood pressure Diastolic blood pressure Provider Name and Address Organization Details Last Updated DateTime 187.96 cm 30.6 kg/m2 620301. 98 g 97.7 [degF] 90 /min 99 % 99 % 200 mm[Hg] 112 mm[Hg] Darlene Duvall RN [facility] [employer] [facility] 15:26:01 Social History Question Answer Notes LastModified by Organizat ion Details LastModified Time Tobacco Smoking Status Current Every Day Smoker Darlene Duvall RN [facility] [employer] [facility] 12/25/2023 10:34:11 Do You Have An [...] Or The Highest Degree You Have Received? [id number] Information not available 12/25/2023 Have There Been Any Changes To Your Family Or Social Situation? Yes Information not available 12/25/2023 Are There Any Guns Present In Your Home? No Information not available 12/25/2023 Where Do You Live? SingleLevelHouse Information not available 12/25/2023 Do You Have A Medical Power Of Shearer Operator? No Information not available 12/25/2023 How Many [...] Anxious, Or Unable To Sleep At Night)? [id number] Information not available 12/25/2023 Do You Use [...] Diagnosis/Indication Diagnosis SNOMED-CT Code Diagnosis ICD10 Code [id number] MAYA Moon [facility] [address] [facility] [place] [address] 12/25/2023 10:16:08 12/25/2023 11:51:04 Essential hypertension 82378231 I10 Sleep terror disorder 89 155885 F51.4 Depressive disorder 3548 9007 F32.A Anxiety 90053751 F41.9 Chronic ob structive pulmonary disease 24337852 J44.9 Type 2 susy betes mellitus 21836394 E11.9 Hyperlipidemia 09447834 E78.5 Screening for malignant neoplasm of prostate 692402570 Z12.5 Cerebrovas cular accident 766553019 I63.9 [id number] MAYA Moon [facility] [address] [place] [address] 08/02/2024 15:02:12 08/02/2024 15:59:40 Sleep terror disorder 15881214 F51.4 Depressive disorder 3548 9007 F32.A Anxiety 62275284 F41.9 Eczema 02292283 L30.9 Type 2 susy betes mellitus 60343511 E11.9 Essential hypertension 44450634 I10 Erectile dysfunction 860 278638 F52.21 Cerebrovas cular accident 921847176 I63.9 Health Concerns Section Related Observation LastModified by Organization Detai ls LastModified Time None Recorded Concern Status LastModified by Organization Details LastModified Time None Recorded Advance Directives Directive N: Payers Encounter Date Sequence Insurance Name Policy Number Policy Agee Covered Member ID Agee Member ID Guarantor Name 12/25/2023 1 [facility] ON OR AFTER 02/28/21 (MEDICAID REPLACEMENT - HMO) Osmar Whitt [id number] Osmar Whitt 08/02/2024 1 [facility] ON OR AFTER 02/28/21 (MEDICAID REPLACEMENT - HMO) Osmar Whitt [id number] Osmar Whitt Notes Date Note Type Note Provider Name and Address Organization Details Recorded Time 12/25/2023 text/html 10 years in [employer]. 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 copd depressed ptsd. Juy 2021 tried to hang himelf MAYA Moon [address], [place], [address], [facility] [employer] [facility] [employer] [facility] 01/02/2024 21:17:57 08/02/2024 text/html still limping , could use a cane . his fall did not injure anything MAYA Moon [address], [place], [address], [employer] 08/04/2024 10:30:59
== END 2024-08-12 15:23 | disposition left against medical advice (07) ==
LOC: ANHED 15:08
DX: M21.372 Foot drop, left foot (principal)
CPT/HCPCS: 99199

== ENCOUNTER 2024-08-27 16:25 | Emergency (ER) | payer OTHER, SELFPAY | END 2024-08-27 16:55 | disposition left against medical advice (07) | DX: Z53.21 Procedure and treatment not carried out due to patient leaving prior to being seen by health care provider (principal) | CPT/HCPCS: 99199 ==